=== PATIENT | female | born 1955 | race Caucasian/White ===

== ENCOUNTER → 2017-01-22 | Outpatient (CLI) | payer BC ==
--- NOTE | 2017-01-25 07:43 | MAMMOGRAPHY REPORT ---
BILATERAL DIGITAL SCREENING MAMMOGRAM TOMOSYNTHESIS WITH CAD: 01/22/2017 CLINICAL HISTORY: Routine screening. Patient has no complaints. TECHNIQUE: Breast tomosynthesis in addition to standard 2D mammography was performed. Current study was also evaluated with a Computer Aided Detection (CAD) system. COMPARISON: Comparison is made to exams dated: 01/21/2016 mammogram, 01/18/2015 mammogram, 01/17/2014 m ammogram, 01/16/2013 mammogram, 01/14/2012 mammogram, and 01/12/2011 mammogram - [facility] enter. BREAST COMPOSITION: There are scattered areas of fibroglandular density in both breasts. FINDINGS: No suspicious masses, calcifications, or areas of architectural distortion are noted in ei ther breast. There has been no significant interval change compared to prior exams. IMPRESSION: ACR BI-RADS CATEGORY 1: NEGATIVE There is no mammographic evidence of malignancy. A 1 year screening mammogram is recommended. The pa tient will receive written notification of the results. Approximately 10% of breast cancers are not detected with mammography. A negative mammographic report should not delay biopsy if a clinically suggestive mass is present. Leatha Malhotra M.D. ah/:01/22/2017 14:54:44 Sumo Wrestler: Aleida TORRES(Meliza)(M), [facility] letter sent: Normal 1/2 BI-RADS Code: ACR BI-RADS Category 1: Negative
== END | disposition home or self-care (01) ==
LOC: C.MAMM 13:49
PROVIDERS: ATTEND Obstetrics & Gynecology
DX: Z12.31 Encounter for screening mammogram for malignant neoplasm of breast (principal)

== ENCOUNTER → 2017-07-05 | Outpatient (CLI) | payer OTHER | END | disposition home or self-care (01) | LOC: C.PAPS 13:42 | PROVIDERS: ATTEND Obstetrics & Gynecology | DX: N95.1 Menopausal and female climacteric states (principal); Z01.419 Encounter for gynecological examination (general) (routine) without abnormal findings ==

== ENCOUNTER → 2018-01-25 | Outpatient (CLI) | payer OTHER ==
--- NOTE | 2018-01-25 15:22 | MAMMOGRAPHY REPORT ---
BILATERAL DIGITAL SCREENING MAMMOGRAM TOMOSYNTHESIS WITH CAD: 01/25/2018 CLINICAL HISTORY: Routine screening. Patient has no complaints. TECHNIQUE: The study was acquired using full field digital technology and interpreted from soft copy. Breast tomosynthesis in addition to standard 2D mammography was performed. Current study was also ev aluated with a Computer Aided Detection (CAD) system. COMPARISON: Comparison is made to exams dated: 01/22/2017 mammogram, 01/21/2016 mammogram, 01/18/2015 m ammogram, 01/17/2014 mammogram, 01/16/2013 mammogram, and 01/14/2012 mammogram - [facility] enter. BREAST COMPOSITION: There are scattered areas of fibroglandular density in both breasts. FINDINGS: The parenchymal pattern is unchanged. No developing mass, architectural distortion or cluster of susp icious microcalcifications is seen in either breast. IMPRESSION: ACR BI-RADS CATEGORY 2: BENIGN There is no mammographic evidence of malignancy. A 1 year screening mammogram is recommended.( 019) The patient will receive written notification of the results. Some breast cancers are not detected with mammography. A negative mammographic report should not rm y biopsy if a clinically suggestive mass is present. Ethel Metzger M.D. ay/:01/25/2018 14:52:04 Gem Technician: RT Christel(R)(M), [facility] letter sent: Normal 1/2 BI-RADS Code: ACR BI-RADS Category 2: Benign
== END | disposition home or self-care (01) ==
LOC: C.MAMM 13:44
PROVIDERS: ATTEND Obstetrics & Gynecology
DX: Z12.31 Encounter for screening mammogram for malignant neoplasm of breast (principal)

== ENCOUNTER 2022-12-16 05:42 | Observation (INO) ==
--- NOTE | 2022-12-04 12:31 | PAT Medication Instructions ---
Medication Instructions Date of Service December 04, 2022 Home Medications Medication Instructions Recorded ileksaobve-guxxkpzdycxac-kasyfrpb 1 tab PO Q4H PRN pain #30 tabs 09/08/22 50 mg-325 mg-40 mg tablet zolpidem 10 mg tablet 10 mg PO HS PRN insomnia #30 tabs 10/23/22 ubvcusiekd-pcrtztrqfytyn-wcwwgboj 50 mg-325 mg-40 mg tablet 1 tab PO Q4H PRN zolpidem 10 mg tablet 10 mg PO HS PRN conj estrogen-medroxyprogesterone 0.45 mg-1.5 mg tablet (Prempro) 1 tab PO QAM ibuprofen 800 mg tablet 800 mg PO Q8H PRN ASK your surgeon for instructions seqigqwigb-liskhppfbixmn-yjsdpuye 50 mg-325 mg-40 mg tablet 1 tab PO Q4H PRN ibuprofen 800 mg tablet 800 mg PO Q8H PRN ASK your prescriber and surgeon conj estrogen-medroxyprogesterone 0.45 mg-1.5 mg tablet (Prempro) 1 tab PO QAM Take evening before surgery zolpidem 10 mg tablet 10 mg PO HS PRN(if needed) Other Notes NOTHING TO EAT OR DRINK AFTER MIDNIGHT. If you have any questions please call us at [phone] or [phone] or [phone] or [phone]
--- NOTE | 2022-12-14 09:26 | Anesthesiology Consultation ---
Date of Service December 14, 2022 Assessment & Plan (1) Encounter for pre-operative examination: - abnormal EKG: LBBB. Awaiting confirmation. Per PCP office, no EKG on final demonstrating LBBB, no diagnosis of this in chart. Case discussed in detail with Dr. Franco who advised patient can proceed with new LBBB. - leukopenia: Case discussed in detail with Dr. Paulson who advised patient is acceptable to proceed, will forward PAT testing including EKG to PCP, PSH Dr. Liz for continuity of care. Chart Review Chart Review: Acceptable Risk for Surgery and Patient seen in Pre Admission Testing Teaching & Discussion Pre-Anesthesia Teaching/Discussion Notes: Instructed NPO after midnight before surgery, except medications with 15 cc of water. Medication instructions provided according to the PAT guidelines. History Surgery Operation Date: 12/16/22 07:30 Proposed Procedures p C5-C6 Cervical Disc Arthroplasty - Tommy Busch MD Height/Weight Height: 5 ft 6 in Weight: 81.4 kg Allergies Allergy/AdvReac Type Severity Reaction Status Date / Time No Known Allergies Allergy Unknown Verified 12/16/22 06:09 Medications Home Medications Medication Instructions Recorded Confirmed Last Taken xzalqpegcq-srkkkiqhcddtl-jrfjjnco 1 tab PO Q4H PRN pain #30 tabs 09/08/22 12/16/22 Unknown 50 mg-325 mg-40 mg tablet zolpidem 10 mg tablet 10 mg PO HS PRN insomnia #30 tabs 10/23/22 12/16/22 Unknown conj estrogen-medroxyprogesterone 1 tab PO QAM 12/04/22 12/16/22 12/15/22 07:00 0.45 mg-1.5 mg tablet (Prempro) ibuprofen 800 mg tablet 800 mg PO Q8H PRN Pain 12/04/22 12/16/22 Unknown Active Medications Generic Name Dose Route Start Last Admin Trade Name Freq PRN Reason Stop Dose Admin Lactated Ringer's 1,000 mls @ 60 mls/hr 12/16/22 06:00 12/16/22 06:24 Lr IV 12/16/22 22:39 Not Given .[id number] WINSTON Lactated Ringer's 1,000 mls @ 15 mls/hr 12/16/22 06:00 12/16/22 06:24 Lr IV 12/17/22 05:59 15 mls/hr .Q24H W[place] Administration Past Medical History Medical History Cervical radiculopathy Cervical spinal stenosis 12/13/19 C5-6 moderate central stenosis min AP diameter 5.5mm, severe L NFS, moderate R NFS. H/O uterine leiomyoma History of COVID-19 05/2020>no symptoms>denies hospitalization Hx of migraines adebayo-menopausal Left shoulder pain "r/t cervical stenosis" Patient denies h/o stroke, seizures, heart attack, heart failure, DM, HTN, blood clots or blood transfusions. Exercise / Class Metabolic Activity II 4-5 Yardwork/Stairs/Walk up hill (denies chest discomfort or shortness of breath with 1 FOS) Past Family History Family History Mother Lung cancer Father Coronary heart disease Other No family history of adverse response to anesthesia Past Surgical History Surgical History H/O lumbar discectomy H/O tubal ligation History of section, low transverse x 1 History of cholecystectomy History of colonoscopy Nausea and vomiting after administration of anesthetic agent [place] teeth removed Past Anesthesia History No Hx of Anesthesia Complications and No Family Hx of Anesthesia Complications History of PONV History of PONV (denies needing scop patch) and Hx of Motion Sickness Social History Smoking Status: Never smoker Do You Dip or Chew Tobacco: No Hx Alcohol Use: Yes Alcohol type: wine alcohol intake frequency: a few times a week Hx Substance Use: No substance use type: does not use Review of Systems Patient denies chest pain, shortness of breath, dyspnea on exertion, snoring, witnessed apneas, reflux, fever, chills, cough, wheezing, or palpitations. Physical Exam Vital Signs Last Vital Signs Temp 36.6 C 12/16/22 06:05 Pulse 71 12/16/22 06:05 Resp 20 12/16/22 06:05 BP 162/100 H 12/16/22 06:05 Pulse Ox 97 12/16/22 06:05 O2 Del Method Room Air 12/16/22 06:05 Vitals BP 137/82 P 85 TEMP 98.4 SP02 96% on RA RESP 18 Physical Full cervical extension range of motion without pain TMD 3.5 finger breadths Mallampati Score 3 Dentition: intact, denies chipped or loose teeth, caps/crowns, implants or bridges Lungs: normal respiratory effort. Good air movement, clear throughout to auscultation, no adventitious breath sounds Cardiac: regular rate and rhythm, no murmurs noted Carotid arteries: negative bruit bilat Lab Results Anesthesia Preop Results Results Anesthesia Widget: WBC 3.53 K/ul (4.8-10.8) L 12/14/22 Hgb 13.3 g/dl (12.0-16.0) 12/14/22 Hct 39.6 % (37.0-47.0) 12/14/22 Plt 192 K/uL (130-400) 12/14/22 Na 139 mmol/L (136-145) 12/14/22 K 4.7 mmol/L (3.5-5.1) 12/14/22 Cl 107 mmol/L (98-107) 12/14/22 CO2 27 mmol/L (21-32) 12/14/22 BUN 12 mg/dl (6-23) 12/14/22 Creat 0.71 mg/dl (0.6-1.2) 12/14/22 Glucose Level 101 mg/dl (70-99(Fasting)) H 12/14/22 PT 10.7 Seconds (9.0-12.0) 12/14/22 PTT 24.8 Seconds (21.0-31.0) 12/14/22 INR 1.0 (0.9-1.1) 12/14/22 SARS-CoV-2, RNA, NAAT NEGATIVE (NEGATIVE) 12/16/22 Blood Type O Negative 12/14/22 Antibody Screen NEGATIVE 12/14/22 Testing Electrocardiogram Date: 12/14/22 NSR, rate 79 bpm LBBB COVID-19 Risk Screen Screening Information COVID-19 Screen Date: 12/14/22 Exposure 21 Days Family/Household +COVID Last 21 Days: No Exposure 10 Days Any COVID Exposure Last 10 Days: No Symptoms Last 10 Days Experienced COVID Sx Last 10 Days: No + COVID 0-90 Days COVID + in Last 0-90 Days: No
[2022-12-16] MEDS ORDERED: ceFAZolin 2000MG 2,000 MG/15 ML SYR IV SCH (06:00)
[2022-12-16] MEDS ORDERED: LR 60ML/HR IV SCH (06:00)
[2022-12-16] MEDS ORDERED: LR 15ML/HR IV SCH (06:00)
[2022-12-16] MEDS ORDERED: HYDROmorphone INJ 2 MG/ML SYR/VIAL IV PRN (06:53)
[2022-12-16] MEDS ORDERED: ONDANSETRON INJ 2 MG/ML 2 ML VIAL IV PRN ×2 (06:53→12:13)
[2022-12-16] MEDS ORDERED: ePHEDrine sulfate 50 MG/ML AMP IV PRN (06:53)
[2022-12-16] MEDS ORDERED: ATROPINE SULFATE 0.1 MG/ML 10ML SYR IV PRN (06:53)
[2022-12-16] MEDS ORDERED: THROMBIN 5000 UNITS KIT ONE (07:06)
[2022-12-16] MEDS ORDERED: GELATIN SPONGE 12-7MM ONE ×2 (07:06→09:28)
[2022-12-16] MEDS ORDERED: VANCOMYCIN HCL 1000MG/20ML VIAL ONE (07:06)
--- NOTE | 2022-12-16 07:09 | History & Physical Bridge Note ---
Date of Service December 16, 2022 History & Physical Bridge Note I have examined the patient, reviewed the History & Physical and in the interval since the performance of the History & Physical I have noted the following changes of clinical significance: no changes noted
[2022-12-16] MEDS ORDERED: ROCURONIUM BROMIDE 10 MG/ML 5 ML VIAL IV ONE ×2 (07:10→08:06)
[2022-12-16] MEDS ORDERED: fentaNYL citrate PF 100 MCG/2 ML VIAL ONE ×2 (07:10→08:12)
[2022-12-16] MEDS ORDERED: ONDANSETRON INJ 2 MG/ML 2 ML VIAL ONE (07:10)
[2022-12-16] MEDS ORDERED: LIDOCAINE 2% 2 ML VIAL/AMP(20MG/ML) INFIL ONE (07:10)
[2022-12-16] MEDS ORDERED: PROPOFOL IV EMULSION 10 MG/ML 20 ML VIAL IV ONE (07:10)
[2022-12-16] MEDS ORDERED: MIDAZOLAM HCL 1 MG/ML 2ML VIAL ONE (07:10)
[2022-12-16] MEDS ORDERED: DEXAMETHASONE SOD INJ 4 MG/ML VIAL ONE (07:10)
[2022-12-16] MEDS ORDERED: KETAMINE 50 MG/5 ML SYRINGE ONE (07:57)
[2022-12-16] MEDS ORDERED: LABETALOL HCL IV 5 MG/ML 20ML IV ONE (09:29)
[2022-12-16] MEDS ORDERED: SUGAMMADEX SODIUM 200 MG/2 ML VIAL IV ONE (09:49)
--- NOTE | 2022-12-16 10:29 | Post Operative Brief Note ---
PG Immediate Post Op with CF Date of Surgery December 16, 2022 Pre & Post Diagnosis Operation Date: 12/16/22 07:30 Pre-Op Diagnosis: Cervical Disc Degeneration Post-Op Diagnosis: Cervical Disc Degeneration I identified the patient and participated in the time-out.: Yes Procedure Operation Date: 12/16/22 07:30 Actual Procedures p C5-C6 Cervical Disc Arthroplasty(Not Applicable) - Tommy Busch MD Surgeon Tommy Busch MD Outfitter [place] none Estimated Blood Loss 10 Findings Consistent with Post-Op Diagnosis Specimens Specimen Description: None per surgeon
[2022-12-16] MEDS: fentaNYL citrate PF 100 MCG/2 ML VIAL IV PRN ×2 (10:42→11:00)
--- NOTE | 2022-12-16 10:45 | Fluoroscopy Report ---
FL cervical 2-3V CLINICAL HISTORY: C5-6 CERVICAL DISC ARTHROPLASTY COMPARISON STUDY: Cervical spine MRI October 31, 2022. Cervical spine radiographs November 10, 2022. FLUOROSCOPY TIME: 1 minute and 36 seconds. Ka, r: 12.80 mGy FLUOROSCOPIC IMAGES: 5 FINDINGS: Fluoroscopy was provided during C5-C6 anterior discectomy. Endotracheal tube is partially i shama. IMPRESSION: Fluoroscopy provided during C5-C6 anterior discectomy. ACT 112: Negative or not required by law. Electronically signed by: Severo Baker M.D. 12/16/2022 10:44 AM
[2022-12-16] MEDS ORDERED: MAGNESIUM HYDROXIDE SUSP 30 ML UDC PO PRN (12:13)
[2022-12-16] MEDS ORDERED: RACEPINEPHRINE 2.25% NEBU SOLN 0.5 ML VIAL INH PRN (12:13)
[2022-12-16] MEDS ORDERED: LORazepam 2 MG/1 ML VIAL IV PRN (12:13)
[2022-12-16] MEDS ORDERED: DO NOT ADMINISTER FLU VACCINE PRN (12:13)
[2022-12-16] MEDS ORDERED: dexAMETHasone 8 MG in SYRINGE 0 ML IV PRN (12:13)
[2022-12-16] MEDS ORDERED: hydrOXYzine HCl 25 MG TAB PO PRN (12:13)
[2022-12-16] MEDS ORDERED: ZOLPIDEM TARTRATE 10 MG TAB PO PRN (12:13)
[2022-12-16] MEDS ORDERED: diphenhydrAMINE Capsule 25 MG CAP PO PRN (12:13)
[2022-12-16] MEDS ORDERED: bisacodyL 10 MG SUPP PR PRN (12:13)
[2022-12-16] MEDS ORDERED: FAMOTIDINE 20 MG TAB PO PRN (12:13)
[2022-12-16] MEDS ORDERED: METOCLOPRAMIDE HCL INJ 5 MG/ML 2 ML VIAL IV PRN (12:13)
[2022-12-16] MEDS ORDERED: PROMETHAZINE HCL 12.5 MG in SODIUM CHLORIDE 0.9% 50 ML IV PRN (12:13)
[2022-12-16] MEDS ORDERED: SOD PHOSPHATE/SOD BIPHOSPHATE ENEMA 132 ML BTL PR PRN (12:13)
[2022-12-16] MEDS ORDERED: LORazepam 0.5 MG TAB PO PRN (12:13)
[2022-12-16] MEDS ORDERED: oxyCODONE/ACETAMINOPHEN 5mg/325mg TAB PO PRN (12:13)
[2022-12-16] MEDS ORDERED: BUTALBITAL/ACETAMIN/CAFFEINE TAB PO PRN (12:13)
[2022-12-16] MEDS ORDERED: ONDANSETRON 4 MG OD TAB PO PRN (12:13)
[2022-12-16] MEDS ORDERED: DO NOT ADMINISTER PNEUMOCOCCAL VACCINE PRN (12:13)
[2022-12-16] MEDS ORDERED: ACETAMINOPHEN 1,000 MG/100 ML VIAL IV PRN (12:13)
[2022-12-16] MEDS ORDERED: HYDROmorphone INJ 0.5 MG/0.5 ML SYR IV PRN (12:13)
[2022-12-16] MEDS ORDERED: NALOXONE HCL 0.4 MG/1 ML VIAL/CARP IV PRN (12:13)
[2022-12-16] MEDS ORDERED: ALUMINUM/MAGNESIUM SUSP 30 ML UDC PO PRN (12:13)
--- NOTE | 2022-12-16 12:39 | Hospitalist Consultation ---
Date of Consultation December 16, 2022 Assessment & Plan (1) Cervical radiculopathy: - post op day #0 C5-C6 cervical disc arthroplasty with Dr Busch (2) Cervical spinal stenosis: Chronic As above (3) Migraine headache without aura: Chronic and stable has not had any migraines x years (4) Insomnia: chronic and stable Zolpidem 10mg qHS as needed Plan TOM hose in place educated on incentive spirometer pain meds per primary team History of Present Illness Reason for Consultation: Post op medical management Requesting Physician: Dr Busch Attending Physician: Tommy Busch MD History of Present Illness Ann Mcneal is a 67 year old female with a past medical history of cervical disc degeneration, cervical radiculopathy, migraine headache and history of a uterine leiomyoma who was admitted for an elective C5-C6 cervical disc arthroplasty. A routine consult was placed with the hospitalist service for post op medical management. Patient states she has been following with pain management over the past 3 years and has failed therapy, education and injections over that time. Patient states she has a hx of migraine headaches but has not had any since she has gone through menopause. Patient is on Prempro and follows with gynecology. She also has occasional insomnia and will take Zolpidem as needed. She is feeling overall well post surgery. She denies any chest pain, cough, SOB, unintentional weight loss, abdominal pain or nausea. Allergies Allergy/AdvReac Type Severity Reaction Status Date / Time No Known Allergies Allergy Unknown Verified 12/16/22 06:09 Home Medications Medication Instructions Recorded Confirmed Type sgaoepsnlk-imntbgvbllice-bgtyvmtv 1 tab PO Q4H PRN pain #30 tabs 09/08/22 12/16/22 Rx 50 mg-325 mg-40 mg tablet zolpidem 10 mg tablet 10 mg PO HS PRN insomnia #30 tabs 10/23/22 12/16/22 Rx conj estrogen-medroxyprogesterone 1 tab PO QAM 12/04/22 12/16/22 History 0.45 mg-1.5 mg tablet (Prempro) ibuprofen 800 mg tablet 800 mg PO Q8H PRN Pain 12/04/22 12/16/22 History Patient History Medical History Cervical radiculopathy Cervical spinal stenosis 12/13/19 C5-6 moderate central stenosis min AP diameter 5.5mm, severe L NFS, moderate R NFS. H/O uterine leiomyoma History of COVID-19 05/2020>no symptoms>denies hospitalization Hx of migraines adebayo-menopausal Left shoulder pain "r/t cervical stenosis" Surgical History H/O lumbar discectomy H/O tubal ligation History of section, low transverse x 1 History of cholecystectomy History of colonoscopy Nausea and vomiting after administration of anesthetic agent [place] teeth removed Family History Mother Lung cancer Father Coronary heart disease Other No family history of adverse response to anesthesia Social History Smoking Status: Never smoker Second Hand Exposure: No; Do You Dip or Chew Tobacco: No; Hx Alcohol Use: Yes Alcohol type: wine Alcohol type Comment: weekends occasionally Hx Substance Use: No Preferred Language: Persian Visual Impairment: No Limitations Hearing Ability: Normal Cottage Attendant Required: No Beliefs That Will Affect Care: None marital status: Current Living Situation: Spouse current occupational status: employed current occupation: professor at [employer], applied [employer] Feels Safe at Home: Yes Safety Concerns: Feels Safe At This Time Assistive Devices: Glasses Review of Systems Constitutional: + fatigue and + insomnia; no fever, no chills, no weakness and no anorexia Respiratory: no cough, no chest congestion, no dyspnea and no pain on inspiration Cardiovascular: no chest pain, no dyspnea, no palpitations, no lightheadedness, no syncope, no edema and no calf pain Gastrointestinal: no abdominal pain, no early satiety, no nausea and no vomiting Integumentary: no rash, no lesions and no new lesions Neurologic: no falls, no dizziness and no syncope known cervical radiculopathy to left shoulder/arm Endocrine: no polydipsia, no polyphagia and no polyuria Physical Exam Constitutional: WD/WN, vitals as above Neck: trachea midline, no thyromegaly Respiratory: normal respiratory effort, lungs clear to auscultation Cardiovascular: RRR, no murmur, no edema Extremities: normal capillary refill; no calf tenderness and no edema Gastrointestinal (Abdomen): normal bowel sounds, soft, nontender, no hepatosplenomegaly Skin: no rashes, warm and dry Psychiatric: A+Ox3, euthymic affect Results & Data Results & Data Vital Signs (Past 12 Hours) Vital Signs Temp Pulse Pulse Resp BP Pulse Ox O2 Del Method 12/16/22 12:00 68 14 139/76 96 Nasal Cannula 12/16/22 11:20 64 17 145/77 H 96 Nasal Cannula 12/16/22 11:10 65 14 144/80 H 95 Nasal Cannula 12/16/22 11:00 61 18 136/80 97 Oxymask 12/16/22 10:50 59 L 20 136/77 97 Oxymask 12/16/22 10:40 59 L 16 150/75 H 100 Oxymask 12/16/22 11:50 71 12 146/84 H 94 Nasal Cannula 12/16/22 11:40 70 13 149/76 H 99 Nasal Cannula 12/16/22 11:30 36.7 C 72 18 143/67 H 98 Nasal Cannula 12/16/22 10:30 63 19 132/74 100 Oxymask 12/16/22 10:23 36 C L 65 17 124/66 98 Oxymask 12/16/22 06:05 36.6 C 71 20 162/100 H 97 Room Air O2 Flow Rate 12/16/22 12:00 2 12/16/22 11:20 2 12/16/22 11:10 2 12/16/22 11:00 2 12/16/22 10:50 4 12/16/22 10:40 4 12/16/22 11:50 2 12/16/22 11:40 2 12/16/22 11:30 2 12/16/22 10:30 6 12/16/22 10:23 6 12/16/22 06:05 Diagnostic Findings Cervical Spine X-Ray 12/16/22 07:30 FL cervical 2-3V CLINICAL HISTORY: C5-6 CERVICAL DISC ARTHROPLASTY COMPARISON STUDY: Cervical spine MRI October 31, 2022. Cervical spine radiographs November 10, 2022. FLUOROSCOPY TIME: 1 minute and 36 seconds. Ka, r: 12.80 mGy FLUOROSCOPIC IMAGES: 5 FINDINGS: Fluoroscopy was provided during C5-C6 anterior discectomy. Endotr acheal tube is partially imaged. IMPRESSION: Fluoroscopy provided during C5-C6 anterior discectomy. ACT 112: Negative or not required by law. Electronically signed by: Severo Baker M.D. 12/16/2022 10:44 AM PG Care Time/CCT Total # of Minutes Spent Total Time Spent with Patient: Total time spent is greater than 50% in coordination of care (as documented) at patient's floor/unit and/or counseling patient: Coding Level of Care Code 85509 IN/OBS CONSULT LVL 2,35M Diagnoses Cervical radiculopathy M54.12 Cervical spinal stenosis M48.02 Migraine headache without aura G43.009 Insomnia G47.00
[2022-12-16] MEDS: LACTATED RINGER'S 1,000 ML IV SCH (12:41)
--- NOTE | 2022-12-16 13:20 | Anesthesiology Progress Note ---
Date of Service December 16, 2022 Anesthesia Post Procedure Vital Signs Vital Signs: Temp Pulse Pulse Resp BP Pulse Ox Pulse Ox 12/16/22 13:17 65 18 97 12/16/22 12:50 37.0 C 76 18 145/84 H 96 12/16/22 12:20 12/16/22 12:20 37.0 C 77 18 143/85 H 95 12/16/22 12:20 95 12/16/22 12:00 68 14 139/76 96 12/16/22 11:20 64 17 145/77 H 96 12/16/22 11:10 65 14 144/80 H 95 12/16/22 11:00 61 18 136/80 97 12/16/22 10:50 59 L 20 136/77 97 12/16/22 10:40 59 L 16 150/75 H 100 12/16/22 11:50 71 12 146/84 H 94 12/16/22 11:40 70 13 149/76 H 99 12/16/22 11:30 36.7 C 72 18 143/67 H 98 12/16/22 10:30 63 19 132/74 100 12/16/22 10:23 36 C L 65 17 124/66 98 12/16/22 06:05 36.6 C 71 20 162/100 H 97 O2 Del Method O2 Del Method O2 Flow Rate 12/16/22 13:17 Nasal Cannula 2 12/16/22 12:50 Nasal Cannula 1 12/16/22 12:20 Nasal Cannula 2 12/16/22 12:20 Nasal Cannula 2 12/16/22 12:20 Nasal Cannula 12/16/22 12:00 Nasal Cannula 2 12/16/22 11:20 Nasal Cannula 2 12/16/22 11:10 Nasal Cannula 2 12/16/22 11:00 Oxymask 2 12/16/22 10:50 Oxymask 4 12/16/22 10:40 Oxymask 4 12/16/22 11:50 Nasal Cannula 2 12/16/22 11:40 Nasal Cannula 2 12/16/22 11:30 Nasal Cannula 2 12/16/22 10:30 Oxymask 6 12/16/22 10:23 Oxymask 6 12/16/22 06:05 Room Air Pain Intensity Left Neck: Pain Intensity: 2 Neck: Pain Intensity: 5 Transfer of Care Handoff Completed per policy Notes Mental Status: alert / awake / arousable and participated in evaluation Patient Amnestic to Procedure: Yes Nausea / Vomiting: adequately controlled Pain: adequately controlled Airway Patency, RR, SpO2: stable & adequate BP & HR: stable & adequate Hydration State: stable & adequate Anesthetic Complications: no major complications apparent and Pt Satisfied with anesthetic care Notes: moving all extremities
[2022-12-16] MEDS ORDERED: CYCLOBENZAPRINE HCL 10 MG TAB PO PRN (14:00)
[2022-12-16] MEDS ORDERED: COUGH DROP (SUGAR FREE) LOZ 24 LOZ/1 BOX BUCCAL PRN (14:33)
[2022-12-16] MEDS: ceFAZolin 1000MG 1,000 MG/7.5 ML SYR IV SCH (16:24)
[2022-12-16] MEDS: ACETAMINOPHEN 500 MG TAB PO PRN (17:24)
[2022-12-16] MEDS ORDERED: DOCUSATE SODIUM/SENNA 50/8.6MG TAB PO SCH (21:00)
[2022-12-17] MEDS: ceFAZolin 1000MG 1,000 MG/7.5 ML SYR IV SCH (01:19)
[2022-12-17] MEDS: LACTATED RINGER'S 1,000 ML IV SCH (01:55)
[2022-12-17] MEDS ORDERED: POLYETHYLENE (MIRALAX) 17 GM PACK PO SCH (06:00)
[2022-12-17] MEDS: ACETAMINOPHEN 500 MG TAB PO PRN (07:42)
--- NOTE | 2022-12-17 08:00 | Discharge Summary ---
Date of Service December 17, 2022 Principal Diagnosis Same as "Discharge Diagnosis" noted below under Discharge Instructions. Discharge Exam Incision site unremarkable. motor intact. Discharge Data Consultations 12/16/22 12:13 Consult Hospitalist Routine Procedures Performed Operation Date: 12/16/22 07:30 Actual Procedures p C5-C6 Cervical Disc Arthroplasty(Not Applicable) - Tommy Busch MD Ordered Studies 12/16/22 07:30 FL cervical 2-3V Routine Hospital Course (1) Cervical radiculopathy: (2) Cervical spinal stenosis: Plan Discharge to home, follow-up in 2 weeks. PG Care Time/CCT Total # of Minutes Spent Total Time Spent with Patient: Total time spent is greater than 50% in coordination of care (as documented) at patient's floor/unit and/or counseling patient: Discharge Plan Discharge Items Patient Disposition: Home - Self-Care Reason For Visit: Cervical Disc Degeneration Discharge Diagnosis: cervical stenosis Activity: As commented below Lifting: No more than 10 pounds Bathing: May shower/bathe in 3 days Exercise/Sports: Wait until after follow-up appointment Driving/Machine Use: Resume 3 days after discharge Weightbearing: Full weightbearing Non-emergency contact: Surgeon Call non-emergency contact if: your symptoms worsen Follow-up/Referrals: Freddy Liz DO [Primary Care Provider] - Diet: Regular Addtl Attending Provider Instructions: No contact sports for a month, no bear wrestling. Pending Studies at Discharge: No Stand-Alone Forms: Code Climate, Smoking Cessation Medications and DC Order Prescriptions: Continued dwduoebmrj-mnylthuwrpltt-qwbl 50-325-40 mg tablet 1 tab PO Q4H PRN (Reason: pain) Qty: 30 3RF Patient Comments: headaches zolpidem 10 mg tablet 10 mg PO HS PRN (Reason: insomnia) Qty: 30 2RF Rx Instructions: Take 1 tablet by mouth at bedtimes as needed for insomnia. ibuprofen 800 mg tablet 800 mg PO Q8H PRN (Reason: Pain) Prempro 0.45-1.5 mg tablet 1 tab PO QAM Discharge Orders: Discharge Order (Routine); Ordered 12/17/22 Ordered By: Tommy Busch Admission Data Admit Date/Time: 12/16/22 10:48 Attending Provider: Tommy Busch Admit Provider: Tommy Busch Primary Care Provider: Freddy Liz Other Providers: Leroy David ; Aziza Addison ; Kwasi Garcia ; Adam Smith ; Angelo Wilson ; Jc Crowe ; Jg Andrade ; Camille Savage ; Bianca Tracy ; Rafael Rojas ; Lisa Schutser ; Rishabh Merino ; Rosalia Arreguin ; Sanjeev Foss ; Freddy Liz ; Meenakshi Hanley ; Aziza Dorman ; Sarah Ferguson ; Shaka Ocampo ; Kwasi Valenzuela ; Ирина Soresnen ; Luis Chowdhury ; Gavi Nichols ; Marito Bateman ; Osei Hernandez ; Cata Dyer ; Lyric Terry ; Luca Bray ; Preethi Pacheco ; Chas Spence ; Adam Pizarro ; Angelo Cervantes
--- NOTE | 2022-12-17 08:10 | Orthopedic Progress Note ---
Date of Service December 17, 2022 Assessment & Plan (1) Cervical spinal stenosis: (2) Cervical radiculopathy: Plan Discharge home, follow-up in 2 weeks Subjective Patient is awake and alert, she notes some swallowing soreness but manageable, limited cervical axial and shoulder achiness but it was treated with Tylenol overnight, the patient did not require any pain medication. She does note that the left arm radiculopathy she had is now absent, and she can feel the radial 2 digits in her left hand. Review of Systems All systems reviewed & are unremarkable except as noted in HPI & below. Physical Exam . Incision site is unremarkable, intact strength left arm Results & Data Results & Data Laboratory Results . Diagnostic Findings . PG Care Time/CCT Total # of Minutes Spent Total Time Spent with Patient: Total time spent is greater than 50% in coordination of care (as documented) at patient's floor/unit and/or counseling patient: Coding Level of Care Code 00465 Post Operative Follow-Up Diagnoses Cervical spinal stenosis M48.02 Cervical radiculopathy M54.12
--- NOTE | 2022-12-18 08:32 | Operative Report ---
[facility] Post Operative Report Pre & Post Diagnosis Operation Date: 12/16/22 07:30 Pre-Op Diagnosis: Cervical Disc Degeneration Post-Op Diagnosis: Cervical Disc Degeneration I identified the patient and participated in the time-out.: Yes Procedure Operation Date: 12/16/22 07:30 Actual Procedures p C5-C6 Cervical Disc Arthroplasty(Not Applicable) - Tommy Busch MD Preoperative diagnosis: Cervical disc degeneration, spondylosis, cervical radiculopathy Postoperative diagnosis: Same Procedure: Anterior cervical discectomy/decompression, insertion of interv ertebral device, Mob[place] C artificial disc replacement 5 mm x 13 mm x 17 mm Surgeon Tommy Busch MD Pulp Cooker none Estimated Blood Loss 10 Findings Consistent with Post-Op Diagnosis Specimens none Anesthesia Type General Complications none Description of Procedure Patient was taken the operating room and after adequate anesthesia was positioned on the OSI flat top table in the supine position. A preprep was performed followed by then positioning the patient and bringing in fluoroscopy where I marked for the location of the incision followed by prep and drape. Procedure was started with a left-sided approach standard fashion, over the C5-6 area with careful dissection down in the standard fashion to the anterior aspect of the cervical spine. Radiographically confirmed the location followed by then mobilizing the soft tissues in this region. Distractor pins were then inserted under fluoroscopic control at C5-C6 followed by then setting retractors. Operative microscope was brought in and began the procedure with the anterior annulotomy. This was followed by then mobilizing the disc material from the disc space including the cartilage from the endplates. This process continued until a thorough discectomy has been performed, to the posterior aspect. The posterior spondylosis was then removed with a combination of high-speed bur followed by then curettes and Kerrison rongeurs with removing the spondylosis, the posterior annulus and posterior longitudinal ligament out to the uncinates on both sides with additional decompression. Once this was completed, trials were then obtained and inserted, selecting the 13 x 17 mm size, 5 mm in height for the device. This device was then obtained, and then tapped into position with excellent position on AP and lateral views. The distractor pins were then removed and bone wax was applied to the insertion sites followed by then final images. The surgical site was then inspected no issues were noted, vancomycin powder was placed. Operative site was closed with 3-0 Vicryl sutures including a subcuticular followed by benzoin and Steri-Strips. Sterile dressing was applied, the patient was taken recovery room satisfactory condition. I attest to the content of the Intraoperative Record and any orders documented therein. Any exceptions are noted below.
== END 2022-12-17 11:15 | disposition home or self-care (01) ==
LOC: 3E 05:42 → ASU 05:42